=== PATIENT | male | born 1990 | race Caucasian/White ===

== ENCOUNTER 2025-07-09 09:56 | Outpatient (CLI) | payer BC, SELFPAY ==
--- NOTE | 2025-07-09 10:23 | SEMFERTCOM_PTH ---
PATIENT: Geovani Harp LOC: [facility] U#:[id number] AGE/SX: 35/M ROOM: RE07/09/[address]: Kelsey Hassan, : 1990 BED: DIS: 07/09/2025 SPEC #: [id number] RECD: 07/09/25 10:25 STATUS: LISA REQ #: [id number] AIDAN: 07/09/25 10:[address]: Sonya,Kelsey Russell DEPT: [facility] Semen RECD BY: Gloria Reddy MLT, ([facility]) Procedures: Semen Fert PAP Stain
[2025-07-09 11:26] LABS: Volume Semen 3.0 mL (1.5-5.0)
[2025-07-09 11:27] LABS: Liquefaction Semen Complete in 30 min. (<30 minutes); Semen Immotility 20 %; Semen Morphology Result to Follow; Semen Non-Progressive Motility 20 %; Semen Progressive Motility 60 % (>32); Semen Total Motility 80 (>40% (PM+NP)); Sperm Count 97.7 Mil/mL (60-150 million/mL)
--- OUTSIDE RECORDS SUMMARY | 2025-07-09 11:58 | XMS_ITS | Clinical Summary ---
Author Organization [facility] en Address [address] [place] [address] Care Team Providers Care Motion Picture Film Examiner Name Role Phone Melvi Alvarado MD Primary Care Provider Allergies No known active allergies Medications No known medications Active Problems Problem Noted Date Diagnosed Date Impacted cerumen of both ears 04/22/2013 Patellar tendonopathy 02/26/2013 Immunizations Immunization Administration Dates Next Due (ADACEL/BOOSTRIX)(10 YR UP) TDAP VACCINE, 0.5ML, IM 02/27/2006 Hepatitis A Vaccine 02/27/2006 Family History Medical History Relation Name Comments Diabetes Father Hypertension Father Healthy Mother Relation Name Status Comments Father Alive Maternal Grandfather Alive Maternal Grandmother Alive Mother Alive Paternal Grandfather Alive Paternal Grandmother Alive Sister Alive Social History Tobacco Use Types Packs/Day Years Used Date Smoking Tobacco: Never Alcohol Use Standard Drinks/Week Comments Not Asked 5 (1 standard drink = 0.6 oz pur e alcohol) beer Sex and Gender Information Value Date Recorded Sex Assigned at Not on file Legal Sex Male 6:09 AM TRANSACTIONAL PARALEGAL Gender Identity Not on file Sexual Orientation Not on file Occupation Industry Job Start Date Job End Date Student Not on file Not on file Not on file Last Filed Vital Signs Vital Sign Reading Time Taken Comments Blood Pressure 147/103 02/23/2019 9:59 AM CDT Pulse 84 02/23/2019 9:59 AM CDT Temperature 37.4 C (99.3 F) 02/23/2019 9:59 AM CDT Respiratory Rate 16 02/23/2019 9:59 AM CDT Oxygen Saturation 97% 02/23/2019 9:59 AM CDT Inhaled Oxygen Concentration - - Weight 158.8 kg (350 lb) 02/23/2019 9:59 AM CDT Height 200.7 cm (6' 7) 02/23/2019 9:59 AM CDT Body Mass Index 39.43 02/23/2019 9:59 AM CDT Plan of Treatment Health Maintenance Due Date Last Done Comments HEPATITIS B VACCINES (1 of 3 - 19+ 3-dose series) 2009 DTAP/TDAP/TD VACCINES (2 - T d or Tdap) 02/28/2016 02/27/2006 HPV VACCINES (1 - 3-dose SCD M series) 2017 Preventative Visit- Commercial 09/18/2024 0 12/18/2012, 04/06/2012, 11/28/2011, Additional history exists INFLUENZA VACCINE (#1) 2025 Insurance [employer] Care Teams Motion Picture Film Examiner Relationship Specialty Start Date End Date Melvi Alvarado MD PCP - General Internal Medicine 02/27/12
== END 2025-07-09 09:57 | disposition home or self-care (01) ==
LOC: CHSLAB 10:05
PROVIDERS: Visit Provider Obstetrics & Gynecology
DX: Z31.41 Encounter for fertility testing (principal)
CPT/HCPCS: 88160; 89320